=== PATIENT | male | born 1950 | race Caucasian/White ===

== ENCOUNTER 2019-02-27 11:48 | Inpatient (IN) ==
[2019-02-28] MEDS ORDERED: GuaiFENesin Liq 200 MG/10 ML UDC PO PRN (15:52)
[2019-02-28] MEDS ORDERED: hydrOXYzine pamoate 25 MG CAPSULE PO PRN (15:53)
[2019-02-28] MEDS ORDERED: Ipratropium/Albuterol Neb 3 ML IH PRN (15:53)
[2019-02-28] MEDS: *HR* Amiodarone 200 MG TABLET PO SCH (21:22)
[2019-02-28] MEDS: Apixaban 5 MG TABLET PO SCH (21:22)
[2019-02-28] MEDS: levETIRAcetam 250 MG TABLET PO SCH (21:22)
[2019-03-01 06:20] LABS: Basophils % 0.2 %; Eosinophils # 0.1 K/mcL (0.0-0.6); Hematocrit 40.2 % (37.5-50.1); Immature Granulocytes % 0.4 % (0-4); Lymphocytes # 2.5 K/mcL (0.6-4.6); Lymphocytes % 18.7 %; Mean Corpuscular HGB Conc 32.3 g/dL (31.6-35.5); Mean Corpuscular Volume 92.8 fL (83.0-100.0); Mean Platelet Volume 10.5 fL (9.4-12.4); Monocytes # 1.2 K/mcL (0.0-1.3); Neutrophils # 9.6 K/mcL (1.6-8.9); Platelet Count 773 K/mcL (140-400); Red Blood Count 4.33 M/mcL (4.19-5.50); Red Cell Distribution Width 15.6 % (11.5-14.5); Segmented Neutrophils % 70.7 %; White Blood Count 13.6 K/mcL (4.3-11.1)
[2019-03-01] MEDS: levETIRAcetam 250 MG TABLET PO SCH ×2 (06:42→17:20)
[2019-03-01 07:58] LABS: Alanine Aminotransferase 31 Units/L (7-52); Albumin 2.7 g/dL (3.5-5.7); Albumin/Globulin Ratio 0.9 (1.1-2.2); Alkaline Phosphatase 172 Units/L (34-104); Aspartate Amino Transferase 27 Units/L (13-39); BUN/Creatinine Ratio 30 (6-26); Bilirubin,Total 0.4 mg/dL (0.3-1.0); Blood Urea Nitrogen 25 mg/dL (8-23); Carbon Dioxide 28 mEq/L (23-29); Chloride 102 mEq/L (98-107); Globulin 3.1 g/dL (2.4-3.5); Glucose 110 mg/dL (70-105); Magnesium 2.3 mg/dL (1.6-2.6); Osmolality,Calculated 289 (280-300); Potassium 4.4 mEq/L (3.5-5.1); Sodium 137 mEq/L (136-145); Total Protein 5.8 g/dL (6.4-8.9); eGFR For African Americans > 60 (> 60); eGFR For Non-African Americans > 60 (> 60)
[2019-03-01] MEDS: FLUoxetine HCl 10 MG CAPSULE PO SCH (08:36)
[2019-03-01] MEDS: Apixaban 5 MG TABLET PO SCH ×2 (08:36→21:22)
[2019-03-01] MEDS: *HR* Amiodarone 200 MG TABLET PO SCH ×2 (08:36→21:22)
[2019-03-01] MEDS: Sennosides 8.6 MG TABLET PO SCH (08:36)
[2019-03-01] MEDS ORDERED: predniSONE 20 MG TABLET PO SCH (09:00)
[2019-03-01] MEDS ORDERED: Aspirin Enteric Coated 81 MG Tablet PO SCH (09:00)
[2019-03-01] MEDS ORDERED: Furosemide 40 MG TABLET PO SCH (09:00)
[2019-03-01] MEDS ORDERED: 0.9 % Sodium Chloride 500 ML IV ONE (14:18)
[2019-03-01] MEDS ORDERED: Ipratropium/Albuterol Neb 3 ML IH PRN (17:39)
[2019-03-01] MEDS: Metoprolol XL (24 HR) Succ 25 MG TAB.ER.24H PO SCH (21:22)
[2019-03-01] MEDS: Magnesium Oxide 400 MG TABLET PO SCH (21:22)
[2019-03-02] MEDS: levETIRAcetam 250 MG TABLET PO SCH ×2 (06:44→16:58)
[2019-03-02 07:07] LABS: Chol/HDL Ratio 4.1 (0-4.9)
[2019-03-02] MEDS: Aspirin Enteric Coated 81 MG Tablet PO SCH (08:55)
[2019-03-02] MEDS: *HR* Amiodarone 200 MG TABLET PO SCH ×2 (08:55→21:11)
[2019-03-02] MEDS: FLUoxetine HCl 10 MG CAPSULE PO SCH (08:56)
[2019-03-02] MEDS: Apixaban 5 MG TABLET PO SCH ×2 (08:56→21:11)
[2019-03-02] MEDS: Magnesium Oxide 400 MG TABLET PO SCH ×2 (08:56→21:11)
[2019-03-02] MEDS: Metoprolol XL (24 HR) Succ 25 MG TAB.ER.24H PO SCH (08:56)
[2019-03-02] MEDS ORDERED: Furosemide 40 MG TABLET PO SCH (09:00)
[2019-03-02] MEDS ORDERED: Mag Hydrox/Al Hydrox/Simeth 30 ML UDC PO PRN (14:23)
[2019-03-02] MEDS: Sennosides 8.6 MG TABLET PO SCH (14:26)
[2019-03-02] MEDS ORDERED: Sennosides 8.6 MG TABLET PO PRN (14:26)
[2019-03-03] MEDS: levETIRAcetam 250 MG TABLET PO SCH ×2 (06:04→17:13)
[2019-03-03] MEDS: Apixaban 5 MG TABLET PO SCH ×2 (10:34→21:03)
[2019-03-03] MEDS: Metoprolol XL (24 HR) Succ 25 MG TAB.ER.24H PO SCH (10:34)
[2019-03-03] MEDS: Aspirin Enteric Coated 81 MG Tablet PO SCH (10:34)
[2019-03-03] MEDS: *HR* Amiodarone 200 MG TABLET PO SCH ×2 (10:34→21:03)
[2019-03-03] MEDS: Magnesium Oxide 400 MG TABLET PO SCH ×2 (10:34→21:03)
[2019-03-03] MEDS: FLUoxetine HCl 10 MG CAPSULE PO SCH (10:34)
[2019-03-03] MEDS: Melatonin 3 MG TABLET PO PRN (23:39)
[2019-03-04] MEDS: levETIRAcetam 250 MG TABLET PO SCH ×2 (06:31→16:52)
[2019-03-04] MEDS: Magnesium Oxide 400 MG TABLET PO SCH ×2 (09:35→19:51)
[2019-03-04] MEDS: Aspirin Enteric Coated 81 MG Tablet PO SCH (09:35)
[2019-03-04] MEDS: *HR* Amiodarone 200 MG TABLET PO SCH ×2 (09:35→19:50)
[2019-03-04] MEDS: Apixaban 5 MG TABLET PO SCH ×2 (09:35→19:50)
[2019-03-04] MEDS: FLUoxetine HCl 10 MG CAPSULE PO SCH (09:35)
[2019-03-04] MEDS: Metoprolol XL (24 HR) Succ 25 MG TAB.ER.24H PO SCH (09:36)
[2019-03-04] MEDS ORDERED: Acetaminophen 325 MG TABLET PO PRN (09:47)
[2019-03-04] MEDS: Ondansetron ODT 4 MG TAB.RAPDIS SL PRN (10:43)
[2019-03-04 10:49] LABS: Hematocrit 40.1 % (37.5-50.1); Mean Corpuscular HGB Conc 32.4 g/dL (31.6-35.5); Mean Corpuscular Hemoglobin 30.3 pg (28.0-33.3); Mean Corpuscular Volume 93.5 fL (83.0-100.0); Mean Platelet Volume 10.4 fL (9.4-12.4); Platelet Count 643 K/mcL (140-400); Red Blood Count 4.29 M/mcL (4.19-5.50); Red Cell Distribution Width 15.9 % (11.5-14.5); White Blood Count 15.1 K/mcL (4.3-11.1)
[2019-03-04 11:10] LABS: BUN/Creatinine Ratio 20 (6-26); Blood Urea Nitrogen 16 mg/dL (8-23); Calcium 7.7 mg/dL (8.6-10.3); Carbon Dioxide 31 mEq/L (23-29); Chloride 105 mEq/L (98-107); Glucose 125 mg/dL (70-105); Osmolality,Calculated 291 (280-300); Potassium 4.6 mEq/L (3.5-5.1); Sodium 139 mEq/L (136-145); eGFR For African Americans > 60 (> 60); eGFR For Non-African Americans > 60 (> 60)
[2019-03-04 14:48] LABS: Bilirubin,Urine Negative (Negative); Blood,Urine Trace-intact (Negative); Clarity,Urine Slightly Cloudy (Clear); Color,Urine Yellow (Yellow); Glucose,Urine (UA) Normal (Normal); Ketones,Urine Negative (Negative); Leukocyte Esterase,Urine Negative (Negative); Nitrite,Urine Negative (Negative); PH,Urine 8.5 pH Units (5.0-8.0); Protein,Urine Trace mg/dL (Neg-Trace); Urobilinogen,Urine Normal (Normal)
[2019-03-04 14:56] LABS: Amorphous Sediment,Urine Moderate per hpf (Few); Bacteria,Urine Few per hpf (None-Few); RBC,Urine 0-3 per hpf (0-3); Squamous Epithelial Cell,Urine Few per lpf (None-Few); WBC,Urine 0-3 per hpf (0-3)
[2019-03-04] MEDS: cefTRIAXone 2,000 MG in Water for inj. (sterile) 20 ML IVPB SCH (16:53)
[2019-03-04] MEDS: Azithromycin 500 MG in 0.9 % Sodium Chloride 250 ML IVPB SCH (17:01)
[2019-03-05 01:58] LABS: Adenovirus Not Detected (Not Detect); Bordetella Pertussis Not Detected (Not Detect); Chlamydophila pneumoniae Not Detected (Not Detect); Coronavirus 229E Not Detected (Not Detect); Coronavirus HKU1 Not Detected (Not Detect); Coronavirus NL63 Not Detected (Not Detect); Coronavirus OC43 Not Detected (Not Detect); Human Metapneumovirus Not Detected (Not Detect); Human Rhinovirus/Enterovirus Not Detected (Not Detect); Influenza A Subtype 2009 H1 Not Detected (Not Detect); Influenza B Not Detected (Not Detect); Mycoplasma pneumoniae Not Detected (Not Detect); Parainfluenza Virus 1 Not Detected (Not Detect); Parainfluenza Virus 2 Not Detected (Not Detect); Parainfluenza Virus 3 Not Detected (Not Detect); Parainfluenza Virus 4 Not Detected (Not Detect); Respiratory Syncytial Virus Not Detected (Not Detect)
[2019-03-05] MEDS: levETIRAcetam 250 MG TABLET PO SCH ×2 (06:17→17:26)
[2019-03-05 08:22] LABS: Hematocrit 40.7 % (37.5-50.1); Hemoglobin 12.9 g/dL (12.9-16.9); Mean Corpuscular HGB Conc 31.7 g/dL (31.6-35.5); Mean Corpuscular Hemoglobin 29.9 pg (28.0-33.3); Mean Corpuscular Volume 94.2 fL (83.0-100.0); Mean Platelet Volume 10.7 fL (9.4-12.4); Platelet Count 578 K/mcL (140-400); Red Blood Count 4.32 M/mcL (4.19-5.50); Red Cell Distribution Width 15.9 % (11.5-14.5); White Blood Count 9.2 K/mcL (4.3-11.1)
[2019-03-05 08:35] LABS: BUN/Creatinine Ratio 21 (6-26); Blood Urea Nitrogen 16 mg/dL (8-23); Calcium 7.5 mg/dL (8.6-10.3); Carbon Dioxide 30 mEq/L (23-29); Chloride 106 mEq/L (98-107); Glucose 113 mg/dL (70-105); Osmolality,Calculated 286 (280-300); Potassium 4.7 mEq/L (3.5-5.1); Sodium 137 mEq/L (136-145); eGFR For African Americans > 60 (> 60); eGFR For Non-African Americans > 60 (> 60)
[2019-03-05] MEDS: FLUoxetine HCl 10 MG CAPSULE PO SCH (08:48)
[2019-03-05] MEDS: 0.9 % Sodium Chloride 1,000 ML IV SCH ×2 (08:48→17:31)
[2019-03-05] MEDS: Apixaban 5 MG TABLET PO SCH ×2 (08:49→20:50)
[2019-03-05] MEDS: Magnesium Oxide 400 MG TABLET PO SCH ×2 (08:49→20:50)
[2019-03-05] MEDS: Ondansetron ODT 4 MG TAB.RAPDIS SL PRN (08:49)
[2019-03-05] MEDS: Acetaminophen 325 MG TABLET PO PRN ×2 (08:49→18:52)
[2019-03-05] MEDS: Aspirin Enteric Coated 81 MG Tablet PO SCH (08:49)
[2019-03-05] MEDS: Ipratropium/Albuterol Neb 3 ML IH PRN ×4 (10:06→20:41)
[2019-03-05] MEDS: *HR* Amiodarone 200 MG TABLET PO SCH ×2 (13:58→20:50)
[2019-03-05] MEDS: Metoprolol XL (24 HR) Succ 25 MG TAB.ER.24H PO SCH (13:58)
[2019-03-05] MEDS: Azithromycin 500 MG in 0.9 % Sodium Chloride 250 ML IVPB SCH (17:25)
[2019-03-05] MEDS: cefTRIAXone 2,000 MG in Water for inj. (sterile) 20 ML IVPB SCH (17:26)
[2019-03-05] MEDS: Melatonin 3 MG TABLET PO PRN (20:50)
[2019-03-05] MEDS: *HR* LORazepam 0.5 MG TABLET PO PRN (21:05)
[2019-03-06] MEDS: levETIRAcetam 250 MG TABLET PO SCH ×2 (04:57→17:18)
[2019-03-06] MEDS: 0.9 % Sodium Chloride 1,000 ML IV SCH (04:57)
[2019-03-06 07:17] LABS: Hematocrit 37.5 % (37.5-50.1); Hemoglobin 11.9 g/dL (12.9-16.9); Mean Corpuscular HGB Conc 31.7 g/dL (31.6-35.5); Mean Corpuscular Volume 94.5 fL (83.0-100.0); Mean Platelet Volume 10.6 fL (9.4-12.4); Platelet Count 504 K/mcL (140-400); Red Blood Count 3.97 M/mcL (4.19-5.50); Red Cell Distribution Width 15.9 % (11.5-14.5); White Blood Count 10.8 K/mcL (4.3-11.1)
[2019-03-06 07:48] LABS: BUN/Creatinine Ratio 23 (6-26); Blood Urea Nitrogen 16 mg/dL (8-23); Calcium 7.5 mg/dL (8.6-10.3); Carbon Dioxide 29 mEq/L (23-29); Chloride 108 mEq/L (98-107); Glucose 112 mg/dL (70-105); Osmolality,Calculated 292 (280-300); Potassium 4.4 mEq/L (3.5-5.1); Sodium 140 mEq/L (136-145); eGFR For African Americans > 60 (> 60); eGFR For Non-African Americans > 60 (> 60)
[2019-03-06] MEDS: FLUoxetine HCl 10 MG CAPSULE PO SCH (08:16)
[2019-03-06] MEDS: *HR* Amiodarone 200 MG TABLET PO SCH ×2 (08:17→20:35)
[2019-03-06] MEDS: Aspirin Enteric Coated 81 MG Tablet PO SCH (08:17)
[2019-03-06] MEDS: Metoprolol XL (24 HR) Succ 25 MG TAB.ER.24H PO SCH (08:17)
[2019-03-06] MEDS: Apixaban 5 MG TABLET PO SCH ×2 (08:17→20:35)
[2019-03-06] MEDS: Magnesium Oxide 400 MG TABLET PO SCH ×2 (08:18→20:35)
[2019-03-06] MEDS: Azithromycin 500 MG in 0.9 % Sodium Chloride 250 ML IVPB SCH (15:47)
[2019-03-06] MEDS: cefTRIAXone 2,000 MG in Water for inj. (sterile) 20 ML IVPB SCH (15:49)
[2019-03-06] MEDS: *HR* LORazepam 0.5 MG TABLET PO PRN (20:35)
[2019-03-06] MEDS: Melatonin 3 MG TABLET PO PRN (20:35)
[2019-03-07 06:13] LABS: Hematocrit 38.8 % (37.5-50.1); Hemoglobin 12.6 g/dL (12.9-16.9); Mean Corpuscular HGB Conc 32.5 g/dL (31.6-35.5); Mean Corpuscular Hemoglobin 30.6 pg (28.0-33.3); Mean Corpuscular Volume 94.2 fL (83.0-100.0); Mean Platelet Volume 11.3 fL (9.4-12.4); Platelet Count 485 K/mcL (140-400); Red Blood Count 4.12 M/mcL (4.19-5.50); Red Cell Distribution Width 15.9 % (11.5-14.5); White Blood Count 10.6 K/mcL (4.3-11.1)
[2019-03-07 06:25] LABS: BUN/Creatinine Ratio 22 (6-26); Blood Urea Nitrogen 17 mg/dL (8-23); Calcium 7.9 mg/dL (8.6-10.3); Carbon Dioxide 30 mEq/L (23-29); Chloride 106 mEq/L (98-107); Glucose 109 mg/dL (70-105); Osmolality,Calculated 292 (280-300); Potassium 4.3 mEq/L (3.5-5.1); Sodium 140 mEq/L (136-145); eGFR For African Americans > 60 (> 60); eGFR For Non-African Americans > 60 (> 60)
[2019-03-07] MEDS: levETIRAcetam 250 MG TABLET PO SCH ×2 (06:48→17:11)
[2019-03-07] MEDS: Aspirin Enteric Coated 81 MG Tablet PO SCH (09:43)
[2019-03-07] MEDS: Apixaban 5 MG TABLET PO SCH ×2 (09:43→20:21)
[2019-03-07] MEDS: FLUoxetine HCl 10 MG CAPSULE PO SCH (09:43)
[2019-03-07] MEDS: Magnesium Oxide 400 MG TABLET PO SCH ×2 (09:43→20:21)
[2019-03-07] MEDS: Metoprolol XL (24 HR) Succ 25 MG TAB.ER.24H PO SCH (09:44)
[2019-03-07] MEDS: *HR* Amiodarone 200 MG TABLET PO SCH ×2 (09:44→20:21)
[2019-03-07] MEDS: 0.9 % Sodium Chloride 1,000 ML IV SCH (14:07)
[2019-03-07] MEDS: Azithromycin 500 MG in 0.9 % Sodium Chloride 250 ML IVPB SCH (15:48)
[2019-03-07] MEDS: cefTRIAXone 2,000 MG in Water for inj. (sterile) 20 ML IVPB SCH (15:50)
[2019-03-07] MEDS: Melatonin 3 MG TABLET PO PRN (20:25)
[2019-03-07] MEDS: *HR* LORazepam 0.5 MG TABLET PO PRN (20:25)
[2019-03-08] MEDS: levETIRAcetam 250 MG TABLET PO SCH (06:01)
[2019-03-08 06:50] VITALS: BP 137/77
[2019-03-08] MEDS: Metoprolol XL (24 HR) Succ 25 MG TAB.ER.24H PO SCH (08:53)
[2019-03-08] MEDS: FLUoxetine HCl 10 MG CAPSULE PO SCH (08:53)
[2019-03-08] MEDS: Apixaban 5 MG TABLET PO SCH (08:53)
[2019-03-08] MEDS: *HR* Amiodarone 200 MG TABLET PO SCH (08:53)
[2019-03-08] MEDS: Aspirin Enteric Coated 81 MG Tablet PO SCH (08:53)
[2019-03-08] MEDS: Magnesium Oxide 400 MG TABLET PO SCH (08:53)
== END 2019-03-08 17:25 | disposition home or self-care (01) | DRG 56 ==
LOC: INPPIK 02-28 17:14
PROVIDERS: ADMIT Family Medicine; ATTEND Family Medicine